=== PATIENT | female | born 1985 | race Caucasian/White ===

== ENCOUNTER 2019-09-16 15:09 | Emergency (ER) | payer MEDICAID ==
[~2019-09-16] VITALS: Ht 154.9 cm; Wt 98.0 kg
[2019-09-16 15:20] VITALS: BP 152/81
[2019-09-16] MEDS ORDERED: LIDOCAINE-MPF 1%, 5ML ONE (15:42)
[2019-09-16] MEDS ORDERED: METHOCARBAMOL 750 MG TABLET ONE ×2 (15:54)
[2019-09-16] MEDS ORDERED: METHOCARBAMOL 750 MG TABLET PO ONE (16:00)
[2019-09-16] MEDS ORDERED: LIDOCAINE 1%, 10ML INFIL ONE (16:00)
== END 2019-09-16 16:41 | disposition home or self-care (01) ==
LOC: ED 16:35
DX: S01.01XA Laceration without foreign body of scalp, initial encounter (principal); F17.200 Nicotine dependence, unspecified, uncomplicated; W01.0XXA Fall on same level from slipping, tripping and stumbling without subsequent striking against object, initial encounter; Y93.89 Activity, other specified; Y92.830 Public park as the place of occurrence of the external cause; Y99.8 Other external cause status
CPT/HCPCS: 12001; 72050; 99283